=== PATIENT | male | born 1960 | race Caucasian/White ===

== ENCOUNTER 2018-05-01 14:18 | Inpatient (IN) | payer MEDICAID, OTHER ==
[2018-05-01 16:05] LABS: ADD MAN DIFF? NO
[2018-05-01 16:11] LABS: WHITE BLOOD COUNT 4.5 10^3/ul (4.8-10.8)
[2018-05-01 16:11] LABS: BASOPHIL # 0.1 10^3/ul (0.0-0.1); BASOPHILS % 1.8 % (0.0-2.0); EOSINOPHILS # 0.3 10^3/ul (0.0-0.5); EOSINOPHILS % 5.8 % (0.0-7.0); HEMOGLOBIN 13.1 g/dl (14.0-18.0); LYMPHOCYTES # 1.7 10^3/ul (0.8-2.9); LYMPHOCYTES % 37.7 % (15.0-51.0); MEAN CORPUSCULAR HEMOGLOBIN 33.8 pg (29.0-33.0); MEAN CORPUSCULAR HGB CONC 34.5 g/dl (32.0-37.0); MEAN CORPUSCULAR VOLUME 97.9 fl (82.0-101.0); MEAN PLATELET VOLUME 11.1 fl (7.4-10.4); MONOCYTE # 0.4 10^3/ul (0.3-0.9); MONOCYTES % 9.9 % (0.0-11.0); NEUTROPHILS % 44.6 % (39.0-77.0); PLATELET COUNT 271 10^3/UL (140-415); RED BLOOD COUNT 3.88 10^6/ul (4.70-6.10); RED CELL DISTRIBUTION WIDTH 12.3 % (11.5-14.5)
[2018-05-01 16:14] LABS: INR 0.88; PT RATIO 0.9
[2018-05-01 16:15] LABS: PARTIAL THROMBOPLASTIN TIME 28.2 Sec (23.0-35.0)
[2018-05-01 16:18] LABS: ALANINE AMINOTRANSFERASE 21 IU/L (13-69); ALBUMIN 3.3 g/dl (3.3-4.9); ALBUMIN/GLOBULIN RATIO 0.86; ALKALINE PHOSPHATASE 64 IU/L (42-121); ANION GAP 12 (8-16); ASPARTATE AMINO TRANSFERASE 29 IU/L (15-46); BILIRUBIN,INDIRECT 0.5 mg/dl (0-1.1); BILIRUBIN,TOTAL 0.5 mg/dl (0.2-1.3); BLOOD UREA NITROGEN 22 mg/dl (7-20); CARBON DIOXIDE 33 mmol/L (21-31); CHLORIDE 97 mmol/L (97-110); CHOLESTEROL 214 mg/dl (100-200); CREATININE 2.12 mg/dl (0.61-1.24); GLUCOSE 253 mg/dl (70-220); HDL CHOLESTEROL 103 mg/dl (28-71); LDL CHOLESTEROL,CALCULATED 93 mg/dl; POTASSIUM 3.6 mmol/L (3.5-5.1); SODIUM 138 mmol/L (135-144); TOTAL PROTEIN 7.1 g/dl (6.1-8.1); TRIGLYCERIDES 92 mg/dl (0-149)
[2018-05-01 16:28] LABS: TROPONIN-I 0.063 ng/ml (0.000-0.120)
[2018-05-01 16:28] LABS: HEMOGLOBIN A1C 6.2 % (0-5.9)
[2018-05-01] MEDS: ASPIRIN 325 MG TAB PO (16:32)
[2018-05-01] MEDS: SOD CHLORIDE 0.9% 1,000 ML IV ×2 (16:33→22:45)
[2018-05-01] MEDS: HYDROCODONE/APAP (10/325) TAB PO (16:48)
[2018-05-01] MEDS: NICARDipine HCL 30 MG CAPSULE PO (17:03)
[2018-05-01 18:23] LABS: ADD UMIC YES; UR ASCORBIC ACID NEGATIVE (NEGATIVE); UR BILIRUBIN (Dip) NEGATIVE (NEGATIVE); UR BLOOD (Dip) 2+ mg/dL (NEGATIVE); UR CLARITY CLEAR (CLEAR); UR COLOR YELLOW (YELLOW); UR GLUCOSE (Dip) 2+ mg/dL (NEGATIVE); UR KETONES (Dip) NEGATIVE (NEGATIVE); UR LEUKOCYTE ESTERASE (Dip) NEGATIVE Leu/ul (NEGATIVE); UR NITRITE (Dip) NEGATIVE (NEGATIVE); UR RBC 17 /HPF (0-5); UR TOTAL PROTEIN (Dip) 3+ mg/dl (NEGATIVE); UR UROBILINOGEN (Dip) NEGATIVE (NEGATIVE); UR WBC 1 /HPF (0-5)
[2018-05-01 18:44] LABS: AMPHETAMINE/METHAMPHETAMINE Negative (NEGATIVE); BARBITURATES Negative (NEGATIVE); BENZODIAZEPINES Negative (NEGATIVE); CANNABINOIDS Negative (NEGATIVE); COCAINE Positive (NEGATIVE); OPIATES Negative (NEGATIVE)
[2018-05-01] MEDS ORDERED: ONDANSETRON 4 MG INJ IV (19:30)
[2018-05-01] MEDS ORDERED: ACETAMINOPHEN 325 MG TAB PO (19:30)
[2018-05-01] MEDS ORDERED: NACL 0.9% 3 ML SYG IV (21:30)
[2018-05-01] MEDS ORDERED: ALBUTEROL/IPRATROPIUM (NEB) 3 ML AMP HHN (21:30)
[2018-05-02 05:42] LABS: ADD MAN DIFF? NO
[2018-05-02 05:47] LABS: WHITE BLOOD COUNT 5.1 10^3/ul (4.8-10.8)
[2018-05-02 05:47] LABS: BASOPHIL # 0.1 10^3/ul (0.0-0.1); EOSINOPHILS # 0.6 10^3/ul (0.0-0.5); EOSINOPHILS % 12.4 % (0.0-7.0); HEMOGLOBIN 11.5 g/dl (14.0-18.0); LYMPHOCYTES # 1.9 10^3/ul (0.8-2.9); LYMPHOCYTES % 37.3 % (15.0-51.0); MEAN CORPUSCULAR HEMOGLOBIN 33.4 pg (29.0-33.0); MEAN CORPUSCULAR HGB CONC 33.8 g/dl (32.0-37.0); MEAN CORPUSCULAR VOLUME 98.8 fl (82.0-101.0); MEAN PLATELET VOLUME 10.9 fl (7.4-10.4); MONOCYTE # 0.5 10^3/ul (0.3-0.9); MONOCYTES % 10.2 % (0.0-11.0); NEUTROPHILS % 38.1 % (39.0-77.0); PLATELET COUNT 232 10^3/UL (140-415); RED BLOOD COUNT 3.44 10^6/ul (4.70-6.10); RED CELL DISTRIBUTION WIDTH 12.5 % (11.5-14.5)
[2018-05-02 06:23] LABS: ALANINE AMINOTRANSFERASE 21 IU/L (13-69); ALBUMIN 2.7 g/dl (3.3-4.9); ALBUMIN/GLOBULIN RATIO 0.81; ALKALINE PHOSPHATASE 55 IU/L (42-121); ANION GAP 11 (8-16); ASPARTATE AMINO TRANSFERASE 23 IU/L (15-46); BILIRUBIN,INDIRECT 0.2 mg/dl (0-1.1); BILIRUBIN,TOTAL 0.2 mg/dl (0.2-1.3); BLOOD UREA NITROGEN 25 mg/dl (7-20); CALCIUM 8.4 mg/dl (8.4-10.2); CARBON DIOXIDE 31 mmol/L (21-31); CHLORIDE 103 mmol/L (97-110); CHOL/HDL RATIO 2.2 RATIO; CHOLESTEROL 183 mg/dl (100-200); CREATININE 2.24 mg/dl (0.61-1.24); GLUCOSE 229 mg/dl (70-220); HDL CHOLESTEROL 82 mg/dl (28-71); LDL CHOLESTEROL,CALCULATED 86 mg/dl; MAGNESIUM 2.2 mg/dl (1.7-2.5); POTASSIUM 3.6 mmol/L (3.5-5.1); SODIUM 141 mmol/L (135-144); TRIGLYCERIDES 76 mg/dl (0-149)
[2018-05-02 06:53] LABS: HEMOGLOBIN A1C 6.4 % (0-5.9)
[2018-05-02] MEDS: ASPIRIN 81 MG TAB PO (08:21)
[2018-05-02] MEDS: HEPARIN 5,000 UNIT/0.5 ML VIAL SC ×2 (08:23→21:08)
[2018-05-02] MEDS: hydrALAzine 20 MG INJ IV ×2 (10:00→21:01)
[2018-05-02] MEDS: AMLODIPINE 2.5 MG TAB PO (10:24)
[2018-05-02] MEDS: NIFEdipine (XL) 30 MG TAB PO ×2 (11:25→20:20)
[2018-05-02] MEDS: INSULIN ASPART [NOVOLOG] 3 ML PEN SC ×5 (12:00→21:00)
[2018-05-02 12:08] LABS: SODIUM,URINE RANDOM 143 mmol/L (30-90)
[2018-05-02 12:13] LABS: CREATINE KINASE 69 IU/L (23-200)
[2018-05-02] MEDS: INSULIN GLARGINE [LANTus] (100 UNITS/ML) SYG SC (12:22)
[2018-05-02 12:23] LABS: CK-MB 2.14 ng/ml (0.0-2.4)
[2018-05-02 16:28] LABS: HAAIG REFLEX REFLEX FILED
[2018-05-02 18:47] LABS: COMPLEMENT C3 81 mg/dl (88-165); COMPLEMENT C4 25 mg/dl (14-44)
[2018-05-02 19:11] LABS: PROSTATE SPECIFIC ANTIGEN 2.6 ng/ml (0.0-4.0)
[2018-05-02 19:11] LABS: HEPATITIS B SURFACE ANTIGEN NEGATIVE (NEGATIVE)
[2018-05-02 19:28] LABS: HEPATITIS B CORE ANTIBODY NEGATIVE (NEGATIVE); HEPATITIS C VIRAL ANTIBODY NEGATIVE (NEGATIVE); HIV 1&2 ANTIBODY NEGATIVE (NEGATIVE)
[2018-05-02] MEDS: ACETAMINOPHEN 325 MG TAB PO (20:15)
[2018-05-02] MEDS: ATORVASTATIN 80 MG TAB PO (20:15)
[2018-05-02] MEDS ORDERED: ATORVASTATIN 20 MG TAB PO (21:00)
[2018-05-02] MEDS: ONDANSETRON 4 MG INJ IV (21:01)
[2018-05-03] MEDS: ACCU-CHEK XX (02:00)
[2018-05-03 06:04] LABS: ADD MAN DIFF? NO
[2018-05-03 06:07] LABS: BASOPHILS % 0.8 % (0.0-2.0); EOSINOPHILS # 0.1 10^3/ul (0.0-0.5); EOSINOPHILS % 1.6 % (0.0-7.0); HEMATOCRIT 38.6 % (42.0-52.0); HEMOGLOBIN 13.2 g/dl (14.0-18.0); LYMPHOCYTES # 1.3 10^3/ul (0.8-2.9); LYMPHOCYTES % 25.2 % (15.0-51.0); MEAN CORPUSCULAR HEMOGLOBIN 33.2 pg (29.0-33.0); MEAN CORPUSCULAR HGB CONC 34.2 g/dl (32.0-37.0); MEAN CORPUSCULAR VOLUME 97.2 fl (82.0-101.0); MEAN PLATELET VOLUME 10.8 fl (7.4-10.4); MONOCYTE # 0.4 10^3/ul (0.3-0.9); MONOCYTES % 7.2 % (0.0-11.0); NEUTROPHIL # 3.4 10^3/ul (1.6-7.5); PLATELET COUNT 253 10^3/UL (140-415); RED BLOOD COUNT 3.97 10^6/ul (4.70-6.10); RED CELL DISTRIBUTION WIDTH 12.4 % (11.5-14.5)
[2018-05-03 06:07] LABS: WHITE BLOOD COUNT 5.2 10^3/ul (4.8-10.8)
[2018-05-03 06:48] LABS: ANION GAP 11 (8-16); BLOOD UREA NITROGEN 22 mg/dl (7-20); CALCIUM 8.8 mg/dl (8.4-10.2); CARBON DIOXIDE 29 mmol/L (21-31); CHLORIDE 102 mmol/L (97-110); CREATININE 1.72 mg/dl (0.61-1.24); GLUCOSE 107 mg/dl (70-220); MAGNESIUM 1.9 mg/dl (1.7-2.5); POTASSIUM 3.6 mmol/L (3.5-5.1); SODIUM 138 mmol/L (135-144)
[2018-05-03] MEDS: INSULIN ASPART [NOVOLOG] 3 ML PEN SC ×7 (07:32→21:00)
[2018-05-03] MEDS: ASPIRIN 81 MG TAB PO (08:08)
[2018-05-03] MEDS: NIFEdipine (XL) 30 MG TAB PO ×2 (08:08→21:07)
[2018-05-03] MEDS: INSULIN GLARGINE [LANTus] (100 UNITS/ML) SYG SC (08:13)
[2018-05-03] MEDS: ACETAMINOPHEN 325 MG TAB PO (08:17)
[2018-05-03] MEDS: HEPARIN 5,000 UNIT/0.5 ML VIAL SC ×2 (08:19→21:13)
[2018-05-03] MEDS ORDERED: AMLODIPINE 2.5 MG TAB PO (09:00)
[2018-05-03 10:56] LABS: ALBUMIN 3.7 g/dL (3.8-4.8); ALPHA-1-GLOBULINS 0.3 g/dL (0.2-0.3); ALPHA-2-GLOBULINS 0.6 g/dL (0.5-0.9); BETA 2 GLOBULINS 0.5 g/dL (0.2-0.5); BETA GLOBULINS 0.4 g/dL (0.4-0.6); GAMMA GLOBULINS 1.4 g/dL (0.8-1.7)
[2018-05-03] MEDS: hydrALAzine 20 MG INJ IV (12:22)
[2018-05-03 13:56] LABS: ANA SCREEN NEGATIVE (NEGATIVE)
[2018-05-03 14:58] LABS: RAPID PLASMA REAGIN NONREACTIVE (NR)
[2018-05-03] MEDS: ATORVASTATIN 80 MG TAB PO (21:06)
[2018-05-04] MEDS: hydrALAzine 20 MG INJ IV (00:35)
[2018-05-04] MEDS: ACCU-CHEK XX (02:00)
[2018-05-04] MEDS: INSULIN ASPART [NOVOLOG] 3 ML PEN SC ×4 (07:34→11:31)
[2018-05-04] MEDS: ASPIRIN 81 MG TAB PO (08:10)
[2018-05-04] MEDS: NIFEdipine (XL) 30 MG TAB PO (08:10)
[2018-05-04] MEDS: HEPARIN 5,000 UNIT/0.5 ML VIAL SC (08:15)
[2018-05-04] MEDS: INSULIN GLARGINE [LANTus] (100 UNITS/ML) SYG SC (08:15)
[2018-05-04] MEDS: THIAMINE 200 MG INJ IM (12:05)
[2018-05-04] MEDS: THIAMINE 100 MG TAB PO (12:06)
[2018-05-04] MEDS: DOXAZOSIN 1 MG TAB PO (12:16)
[2018-05-04] MEDS ORDERED: DOXAZOSIN 4 MG TAB PO (21:00)
== END 2018-05-04 14:35 | disposition home or self-care (01) | DRG 69 ==
LOC: E/R 14:18 → 6WM 19:16
PROVIDERS: Internal Medicine
DX: G45.9 Transient cerebral ischemic attack, unspecified (principal); N17.9 Acute kidney failure, unspecified; E11.65 Type 2 diabetes mellitus with hyperglycemia; R31.9 Hematuria, unspecified; R80.9 Proteinuria, unspecified; E11.22 Type 2 diabetes mellitus with diabetic chronic kidney disease; I12.9 Hypertensive chronic kidney disease with stage 1 through stage 4 chronic kidney disease, or unspecified chronic kidney disease; N18.9 Chronic kidney disease, unspecified; E78.5 Hyperlipidemia, unspecified; Z87.891 Personal history of nicotine dependence; Z91.19 Patient's noncompliance with other medical treatment and regimen
CPT/HCPCS: 36415; 70450; 70544; 70551; 71045; 76775; 80048; 80053; 80061; 80307; 81001; 82550; 82553; 82570; 82962; 83036; 83735; 84100; 84153; 84154; 84155; 84156; 84165; 84166; 84300; 84443; 84484; 84560; 85025; 85610; 85730; 86038; 86160; 86592; 86703; 86704; 86709; 86803; 87086; 87340; 92610; 93005; 93306; 93880; 96360; 96361; 97161; 99285-25